=== PATIENT | female | born 1940 | race Caucasian/White ===

== ENCOUNTER 2016-11-17 12:13 | Inpatient (IN) | payer OTHER ==
[~2016-11-17] VITALS: Ht 161.3 cm; Wt 100.4 kg
[~2016-11-17 12:13] MED LIST: ASPIRIN325 MG PO; CALCIUM PO; CARVEDILOL6.25 MG PO; CLOPIDOGREL75 MG PO; COZAAR50 MG PO; ETODOLAC ER400 MG PO; FUROSEMIDE80 MG PO; KLOR-CON 1010 MEQ PO; LIPITOR80 MG PO; METFORMIN HCL1000 MG PO; MULTIVITAMIN1 TAB PO; [UNRECOGNIZED DRUG - OTHER] PO
--- NOTE | 2016-11-17 15:11 | ED CLINICAL REPORT ---
Clinical Report - Physicians/Mid Levels Formerly [facility] [address] [place] [address] 11/17/2016 12:15 Patient: JAYLYN WEBBER Time Seen: 1241; initial patient contact. Arrived- By private vehicle. Historian- patient. HISTORY OF PRESENT ILLNESS Chief Complaint: RECTAL BLEEDING. This started today, has been severe and is still present. It was abrupt in onset and has been constant but is not gone now. The patient has had severe rectal bleeding. (clots with bowel movements. Light headed slightly but not sure if that different from baseline. On clopidogrel and asprin). Similar symptoms previously: Once (about 2 years ago. had a colonoscopy but does not remember the results). Recent medical care: Not recently seen/assessed. REVIEW OF SYSTEMS No skin rash. All systems otherwise negative, except as recorded above. PAST HISTORY See nurses notes. Medications: Calcium & Magnesium Carbonates Oral (Tablet 311-232 mg) 1 tablet, day. Furosemide Oral 120, daily. Clopidogrel Bisulfate Oral 75 mg, daily. Carvedilol 12.5mg bid. Potassium Chloride Oral 10 meq, daily. MetFORMIN HCl Oral 1000mg, 2x a day. Etodolac Oral 400 mg, 2x a day. Losartan Potassium Oral 100 mg, daily. Atorvastatin Calcium Oral 80 mg, at bedtime. ASA Oral 81mg day. Iron Oral 65mg DAY. Allergies: Sulfa Antibiotics. SOCIAL HISTORY Never smoker. No alcohol use or drug use. No recent travel. Is a local resident. ADDITIONAL NOTES The nursing notes have been reviewed. PHYSICAL EXAM Vital Signs: 11/17/2016 12:32 BP: 174/64. HR: 72. RR: 18. O2 saturation: 98%. Temp: 98.1 F. Pain level now: 0/10. Hypertensive. Oxygen saturation normal. Appearance: Alert. Oriented X3. No acute distress. Eyes: Pupils equal, round and reactive to light. Eyes normal inspection. No pale conjunctivae. ENT: Ears normal. Nose normal. Pharynx normal. CVS: Normal heart rate and rhythm. Heart sounds normal. Pulses normal. Respiratory: No respiratory distress. Breath sounds normal. No rales, rhonchi or wheezes. Abdomen: Soft and nontender. Bowel sounds normal. No mass. Rectal: Rectal exam normal and nontender. (grossly positve maroon colored blood on EUSEBIO). Skin: Skin warm and dry. Normal skin color. No rash. Normal skin turgor. Extremities: Extremities exhibit normal ROM. No lower extremity edema. LABS, X-RAYS, AND EKG Laboratory Tests: UA-Culture if indicated: (BRANDEN: 11/17/2016 13:00) ( [facility] 11/17/2016 14:17) Final results Test Result Flag Units (Reference) URINE COLOR YELLOW URINE APPEARANCE CLEAR URINE GLUCOSE NEGATIVE (NEGATIVE) URINE BILIRUBIN 2+ (NEGATIVE) URINE KETONE NEGATIVE (NEGATIVE) URINE SPECIFIC GRAVITY <= 1.005 L (1.010-1.030) URINE PH 6.0 (5.0-8.0) URINE PROTEIN NEGATIVE (NEGATIVE) URINE UROBILINOGEN 0.2 EU/dL (0.2-1.0) URINE NITRITE NEGATIVE (NEGATIVE) URINE BLOOD NEGATIVE (NEGATIVE) URINE LEUK ESTERASE POSITIVE (NEGATIVE) URINE RBC NONE SEEN rbc/hpf (0-1) URINE WBC 5-10 wbc/hpf (0-1) URINE EPITHELIAL CELLS 0-1 EPI/hpf (0-5) URINE BACTERIA MODERATE (2+ TO 3+) (NONE SEEN) URINE COMMENT CULTURE INDICATED URINE CULTURES ARE SET-UP BASED ON THE FOLLOWING CRITERIA:POSITIVE NITRITEPOSITIVE LEUKOCYTE ESTERASEGREATER THAN 10 WHITE BLOOD CELLSMODERATE (2+) OR GREATER BACTERIA CBC w Diff: (BRANDEN: 11/17/2016 13:10) ( [facility] 11/17/2016 13:27) Final results Test Result Flag Units (Reference) WHITE BLOOD COUNT 12.1 H K/uL (4.5-11.5) RED BLOOD COUNT 4.06 M/uL (4.00-5.20) HEMOGLOBIN 11.6 L gm/dL (12.0-16.0) HEMATOCRIT 35.5 L % (36.0-46.0) MEAN CELL VOLUME 88 fL (80-100) MEAN CORPUSCULAR HGB 29 pg (26-34) MEAN CORPUSCULAR HGB CONC 33 g/dL (31-37) RED CELL DISTRIBUTION WIDTH 15.9 H % (11.6-14.8) PLATELET COUNT 273 K/uL (150-400) NEUTROPHIL % 69.3 % (50-75) LYMPH % 20.8 L % (25-40) MONO % 6.9 % (3-14) EOSINOPHIL % 2.6 % (0-4) BASOPHIL % 0.4 % (0-2) PT with INR: (BRANDEN: 11/17/2016 13:10) ( [facility] 11/17/2016 13:40) Final results Test Result Flag Units (Reference) INR 0.9 (0.8-1.2) Low Intensity Therapy: INR 1.5-2.0 PT range 18.5-23.1Mod.Intensity Therapy: INR 2.0-3.0 PT range 23.1-31.5High Intensity Therapy: INR 2.5-3.5 PT range 27.4-35.5High Intensity Therapy 2: INR 3.0-4.0 PT range 31.5-39.3 APTT 29 SECONDS (24-34) CMP: (BRANDEN: 11/17/2016 13:10) ( [facility] 11/17/2016 13:54) Final results Test Result Flag Units (Reference) GLUCOSE 93 mg/dL (70-110) BUN 25 H mg/dL (7-18) CREATININE 1.2 mg/dL (0.6-1.3) Estimated GFR 46.42 mL/min Estimated GFR- 56.27 mL/min Note: Persistent reduction over 3 months in eGFR<60 mL/min/1.73 m2 defines CKD. Patients with eGFR values>=60 mL/min/1.73 m2 may also have CKD if evidence ofpersistent proteinuria. Additional information may be foundat www.kidney.org. SODIUM 141 mmol/L (136-145) POTASSIUM 4.4 mmol/L (3.5-5.1) CHLORIDE 101 mmol/L (98-107) CARBON DIOXIDE 33 H mmol/L (21-32) CALCIUM 9.3 mg/dL (8.5-10.1) TOTAL PROTEIN 7.6 g/dL (6.4-8.2) ALBUMIN 3.3 g/dL (3.3-5.0) BILIRUBIN, TOTAL 0.6 mg/dL (0.0-1.0) ALKALINE PHOSPHATASE 64 U/L (46-116) AST (SGOT) 21 U/L (15-37) ALT (SGPT) 14 U/L (12-78) Type & Screen: (BRANDEN: 11/17/2016 13:10) ( MsgRcvd 11/17/2016 14:18) Final results Test Result Flag Units (Reference) PATIENT BLOOD TYPE O Positive ANTIBODY SCREEN NEGATIVE . PROGRESS AND PROCEDURES Course of Care: patient with bleeding on history and exam. patient without significantly low H/H requiring transfusion. discussed case with hospitalist who will accept patient and surgery has been contacted for upper and lower endoscopy tomorrow. patient agreeable to plan. incidental UTI also found. Abx ordered. discussed case with patient. all questions answered. patient agreeable to the treatment and plan. Critical care performed (30 minutes). Time is exclusive of separately billable procedures. Time includes: direct patient care, patient reassessment, coordination of patient care, review of patient's medical records, medical consultation and documentation of patient care. Consult obtained from surgery. CLINICAL IMPRESSION Major GI bleed (acute). Urinary tract infection. (Electronically signed by Johan Garber Dr. 11/19/2016 18:31)
--- NOTE | 2016-11-17 15:11 | ED NURSING NOTES ---
Clinical Report - Nurses [facility] [address] [place] [address] 11/17/2016 12:15 Patient: JAYLYN WEBBER TRIAGE Triage time 12:32. Acuity: LEVEL 3. Chief Complaint: ABDOMINAL PAIN. Alert. No acute distress. --12:50 Heather Singh R.N. 12:32 11/17/16. BP: 174/64. HR: 72. RR: 18. O2 saturation: 98%. Temp: 98.1 F. Pain level now: 0/10. --12:50 Heather Singh R.N. 12:32 11/17/16. BP: 174/64. HR: 72. RR: 18. O2 saturation: 98%. Temp: 98.1 F. Pain level now: 0/10. --12:51 Heather Singh R.N. Weight: 95.2 kg stated. Height/Length: 62 inches Per Patient. BMI: 38.4. --12:49 Heather Singh R.N. Medications Iron Oral 65mg DAY. --12:35 Heather Singh R.N. ASA Oral 81mg day. --12:35 Heather Singh R.N. Atorvastatin Calcium Oral 80 mg, at bedtime. --12:36 Heather Singh R.N. Losartan Potassium Oral 100 mg, daily. --12:36 Heather Singh R.N. Etodolac Oral 400 mg, 2x a day. --12:37 Heather Singh R.N. MetFORMIN HCl Oral 1000mg, 2x a day. --12:38 Heather Singh R.N. Potassium Chloride Oral 10 meq, daily. --12:39 Heather Singh R.N. Carvedilol 12.5mg bid. --12:40 Heather Singh R.N. Clopidogrel Bisulfate Oral 75 mg, daily. --12:40 Heather Singh R.N. Furosemide Oral 120, daily. --12:41 Heather Singh R.N. Calcium & Magnesium Carbonates Oral (Tablet 311-232 mg) 1 tablet, day. --12:41 Heather Singh R.N. Medication/allergy information source: the patient. --12:50 Heather Singh R.N. Allergies Sulfa Antibiotics. --12:42 Heather Singh R.N. History Arrived by private vehicle. Historian: patient and family. Accompanied by family. Primary physician (luis). This started today. She has had diarrhea. No nausea, vomiting, constipation or abdominal pain. Last oral intake by patient was breakfast. 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 PAST MEDICAL HX: Immunizations: status is unknown. The patient has had a hysterectomy. SOCIAL HX: Smoker- current status unknown. FALL RISK ASSESSMENT: Fall risk assessment completed. No fall risk identified. NUTRITIONAL RISK ASSESSMENT: The nutritional risk assessment revealed no deficiencies. FUNCTIONAL ASSESSMENT: Functional assessment: no impairments noted. LEARNING NEEDS ASSESSMENT: The learning needs assessment revealed no barriers. SKIN INTEGRITY ASSESSMENT: Skin integrity risk assessment completed. No skin integrity risk identified. --12:50 Heather Singh R.N. PROBLEMS: VT. Diabetes Mellitus. 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 Htn. --12:46 Heather Singh R.N. ADDITIONAL SURGERIES: Hysterectomy. Knee Surgery. --12:46 Heather Singh R.N. Interventions ID band on patient. To room. --12:50 Heather Singh R.N. PHYSICAL ASSESSMENT Ambulatory to room. Patient gowned. GENERAL / NEURO / PSYCH: Alert. Oriented X 4. Appears in no acute distress. HEENT: Mucous membranes are pink. RESPIRATORY: Respirations not labored. CVS: Capillary refill less than 2 seconds. GI / : Abdomen nontender. SKIN: Skin is warm and dry. --12:51 Heather Singh R.N. NURSING PROGRESS NOTES Pulse oximeter and NIBP monitor placed on patient; monitor alarms on. Patient gowned. Head of bed elevated. Two patient identifiers checked. Call light placed in reach. Side rails up x 2. Patient placed in chair. Brakes of chair on. Patient ready for evaluation. --12:52 Heather Singh R.N. 13:09 11/17/2016 Site #1 started via IV antecubital space with an 20g angiocath, with aseptic technique and good blood return; one attempt. Blood drawn: rainbow set. Labeled in the presence of the patient and sent to the lab. Saline lock flushed with saline. --13:09 Heather Singh R.N. 13:09 11/17/2016 Started bag #1 1000 mL IV Fluids IV NS (Saline); at 1000 mL/hr over 1 hour(s) via site #1 via IV pump. Allergies verified and confirmed 5 rights. IV patency established. IV site checked: no pain, redness, or swelling. IV flushed thoroughly pre- and post-medication administration. --13:09 Heather Singh R.N. 14:11/17/2016 IV Fluids IV NS Discontinued: bag #1 infused. Total amount infused: 1000 mL. IV patency established. IV site checked: no pain, redness, or swelling. IV flushed thoroughly. --14:10 Fiordaliza Glasgow R.N. 15:37 11/17/16. BP: 133/78 taken while sitting. HR: 65. RR: 16. O2 saturation: 99%. Pain level now: 0/10. 14:16 11/17/16. BP: 150/74. HR: 78. RR: 20. O2 saturation: 100% on room air. 13:16 11/17/16. BP: 145/88. HR: 82. RR: 20. O2 saturation: 100% on room air. 12:32 11/17/16. BP: 174/64. HR: 72. RR: 18. O2 saturation: 98%. Temp: 98.1 F. Pain level now: 0/10. --15:43 Heather Singh R.N. 15:45 11/17/2016 Keflex (Cephalexin) PO 500 mg given. Allergies verified and confirmed 5 rights. --15:45 Fiordaliza Glasgow R.N. 16:00 11/17/16. BP: 139/60 taken while lying. HR: 77. RR: 18. O2 saturation: 99% on room air. 15:59 11/17/16. BP: 123/54 taken on the left arm, while standing. HR: 74. RR: 18. O2 saturation: 99% on room air. 15:37 11/17/16. BP: 133/78 taken while sitting. HR: 65. RR: 16. O2 saturation: 99%. Pain level now: 0/10. --16:01 Heather Singh R.N. DISPOSITION / DISCHARGE 16:05 11/17/16. Admitted to Acute Care (209). Transported via stretcher by Miro. Report was given to a nurse via a phone call. Report included patient's care, treatment, medications, reviewed medication reconcilliation, and condition (including any recent changes or anticipated changes). All questions were answered. Report was acknowledged and care was transferred. (Dex RN). Patient's personal items include: shirt, pants, undergarments, pajamas, socks, shoes and jewelry; items were placed in belongings bag and transported with the patient. Collection of belongings was witnessed by 1 nurse. --16:05 Heather Singh R.N. 16:00 11/17/16. BP: 139/60 taken while lying. HR: 77. RR: 18. O2 saturation: 99% on room air. 15:59 11/17/16. BP: 123/54 taken on the left arm, while standing. HR: 74. RR: 18. O2 saturation: 99% on room air. 15:58 11/17/16. BP: 138/95 taken while sitting. HR: 64. RR: 18. O2 saturation: 98% on room air. 15:37 11/17/16. BP: 133/78 taken while sitting. HR: 65. RR: 16. O2 saturation: 99%. Pain level now: 0/10. 14:16 11/17/16. BP: 150/74. HR: 78. RR: 20. O2 saturation: 100% on room air. 13:16 11/17/16. BP: 145/88. HR: 82. RR: 20. O2 saturation: 100% on room air. 12:32 11/17/16. BP: 174/64. HR: 72. RR: 18. O2 saturation: 98%. Temp: 98.1 F. Pain level now: 0/10. --16:05 Heather Singh R.N. Departure time: 16:12. --16:12 Heather Singh R.N. Locked/Released at 11/17/2016 16:12 by Heather Singh R.N.
--- NOTE | 2016-11-17 15:11 | ED CLINICAL REPORT ---
Clinical Report - Physicians/Mid Levels [facility] [address] [place] [address] 11/17/2016 12:15 Patient: JAYLYN WEBBER Time Seen: 1241; initial patient contact. Arrived- By private vehicle. Historian- patient. HISTORY OF PRESENT ILLNESS Chief Complaint: RECTAL BLEEDING. This started today, has been severe and is still present. It was abrupt in onset and has been constant but is not gone now. The patient has had severe rectal bleeding. (clots with bowel movements. Light headed slightly but not sure if that different from baseline. On clopidogrel and asprin). Similar symptoms previously: Once (about 2 years ago. had a colonoscopy but does not remember the results). Recent medical care: Not recently seen/assessed. REVIEW OF SYSTEMS No skin rash. All systems otherwise negative, except as recorded above. PAST HISTORY See nurses notes. Medications: Calcium & Magnesium Carbonates Oral (Tablet 311-232 mg) 1 tablet, day. Furosemide Oral 120, daily. Clopidogrel Bisulfate Oral 75 mg, daily. Carvedilol 12.5mg bid. Potassium Chloride Oral 10 meq, daily. MetFORMIN HCl Oral 1000mg, 2x a day. Etodolac Oral 400 mg, 2x a day. Losartan Potassium Oral 100 mg, daily. Atorvastatin Calcium Oral 80 mg, at bedtime. ASA Oral 81mg day. Iron Oral 65mg DAY. Allergies: Sulfa Antibiotics. SOCIAL HISTORY Never smoker. No alcohol use or drug use. No recent travel. Is a local resident. ADDITIONAL NOTES The nursing notes have been reviewed. PHYSICAL EXAM Vital Signs: 11/17/2016 12:32 BP: 174/64. HR: 72. RR: 18. O2 saturation: 98%. Temp: 98.1 F. Pain level now: 0/10. Hypertensive. Oxygen saturation normal. Appearance: Alert. Oriented X3. No acute distress. Eyes: Pupils equal, round and reactive to light. Eyes normal inspection. No pale conjunctivae. ENT: Ears normal. Nose normal. Pharynx normal. CVS: Normal heart rate and rhythm. Heart sounds normal. Pulses normal. Respiratory: No respiratory distress. Breath sounds normal. No rales, rhonchi or wheezes. Abdomen: Soft and nontender. Bowel sounds normal. No mass. Rectal: Rectal exam normal and nontender. (grossly positve maroon colored blood on EUSEBIO). Skin: Skin warm and dry. Normal skin color. No rash. Normal skin turgor. Extremities: Extremities exhibit normal ROM. No lower extremity edema. LABS, X-RAYS, AND EKG Laboratory Tests: UA-Culture if indicated: (BRANDEN: 11/17/2016 13:00) ( [facility] 11/17/2016 14:17) Final results Test Result Flag Units (Reference) URINE COLOR YELLOW URINE APPEARANCE CLEAR URINE GLUCOSE NEGATIVE (NEGATIVE) URINE BILIRUBIN 2+ (NEGATIVE) URINE KETONE NEGATIVE (NEGATIVE) URINE SPECIFIC GRAVITY <= 1.005 L (1.010-1.030) URINE PH 6.0 (5.0-8.0) URINE PROTEIN NEGATIVE (NEGATIVE) URINE UROBILINOGEN 0.2 EU/dL (0.2-1.0) URINE NITRITE NEGATIVE (NEGATIVE) URINE BLOOD NEGATIVE (NEGATIVE) URINE LEUK ESTERASE POSITIVE (NEGATIVE) URINE RBC NONE SEEN rbc/hpf (0-1) URINE WBC 5-10 wbc/hpf (0-1) URINE EPITHELIAL CELLS 0-1 EPI/hpf (0-5) URINE BACTERIA MODERATE (2+ TO 3+) (NONE SEEN) URINE COMMENT CULTURE INDICATED URINE CULTURES ARE SET-UP BASED ON THE FOLLOWING CRITERIA:POSITIVE NITRITEPOSITIVE LEUKOCYTE ESTERASEGREATER THAN 10 WHITE BLOOD CELLSMODERATE (2+) OR GREATER BACTERIA CBC w Diff: (BRANDEN: 11/17/2016 13:10) ( [facility] 11/17/2016 13:27) Final results Test Result Flag Units (Reference) WHITE BLOOD COUNT 12.1 H K/uL (4.5-11.5) RED BLOOD COUNT 4.06 M/uL (4.00-5.20) HEMOGLOBIN 11.6 L gm/dL (12.0-16.0) HEMATOCRIT 35.5 L % (36.0-46.0) MEAN CELL VOLUME 88 fL (80-100) MEAN CORPUSCULAR HGB 29 pg (26-34) MEAN CORPUSCULAR HGB CONC 33 g/dL (31-37) RED CELL DISTRIBUTION WIDTH 15.9 H % (11.6-14.8) PLATELET COUNT 273 K/uL (150-400) NEUTROPHIL % 69.3 % (50-75) LYMPH % 20.8 L % (25-40) MONO % 6.9 % (3-14) EOSINOPHIL % 2.6 % (0-4) BASOPHIL % 0.4 % (0-2) PT with INR: (BRANDEN: 11/17/2016 13:10) ( [facility] 11/17/2016 13:40) Final results Test Result Flag Units (Reference) INR 0.9 (0.8-1.2) Low Intensity Therapy: INR 1.5-2.0 PT range 18.5-23.1Mod.Intensity Therapy: INR 2.0-3.0 PT range 23.1-31.5High Intensity Therapy: INR 2.5-3.5 PT range 27.4-35.5High Intensity Therapy 2: INR 3.0-4.0 PT range 31.5-39.3 APTT 29 SECONDS (24-34) CMP: (BRANDEN: 11/17/2016 13:10) ( [facility] 11/17/2016 13:54) Final results Test Result Flag Units (Reference) GLUCOSE 93 mg/dL (70-110) BUN 25 H mg/dL (7-18) CREATININE 1.2 mg/dL (0.6-1.3) Estimated GFR 46.42 mL/min Estimated GFR- 56.27 mL/min Note: Persistent reduction over 3 months in eGFR<60 mL/min/1.73 m2 defines CKD. Patients with eGFR values>=60 mL/min/1.73 m2 may also have CKD if evidence ofpersistent proteinuria. Additional information may be foundat [email or web address].org. SODIUM 141 mmol/L (136-145) POTASSIUM 4.4 mmol/L (3.5-5.1) CHLORIDE 101 mmol/L (98-107) CARBON DIOXIDE 33 H mmol/L (21-32) CALCIUM 9.3 mg/dL (8.5-10.1) TOTAL PROTEIN 7.6 g/dL (6.4-8.2) ALBUMIN 3.3 g/dL (3.3-5.0) BILIRUBIN, TOTAL 0.6 mg/dL (0.0-1.0) ALKALINE PHOSPHATASE 64 U/L (46-116) AST (SGOT) 21 U/L (15-37) ALT (SGPT) 14 U/L (12-78) Type & Screen: (BRANDEN: 11/17/2016 13:10) ( MsgRcvd 11/17/2016 14:18) Final results Test Result Flag Units (Reference) PATIENT BLOOD TYPE O Positive ANTIBODY SCREEN NEGATIVE . PROGRESS AND PROCEDURES Course of Care: patient with bleeding on history and exam. patient without significantly low H/H requiring transfusion. discussed case with hospitalist who will accept patient and surgery has been contacted for upper and lower endoscopy tomorrow. patient agreeable to plan. incidental UTI also found. Abx ordered. discussed case with patient. all questions answered. patient agreeable to the treatment and plan. Critical care performed (30 minutes). Time is exclusive of separately billable procedures. Time includes: direct patient care, patient reassessment, coordination of patient care, review of patient's medical records, medical consultation and documentation of patient care. Consult obtained from surgery. CLINICAL IMPRESSION Major GI bleed (acute). Urinary tract infection. (Electronically signed by Johan Garber Dr. 11/19/2016 18:31)
--- NOTE | 2016-11-17 15:11 | ED ORDER SUMMARY ---
..... Patient: JAYLYN WEBBER OrderSheet [facility]ly [facility] VisitID: [id number] [place] [address] 76y, F Registration Date/Time: 11/17/2016 ORDER SHEET Weight: 95.2 kg (stated) Allergies: Sulfa Antibiotics GENERAL ORDERS: CBC w Diff Urgent (12:41 11/17/2016 Mian Lino) (Ack 12:52 Nishi) (13:10 SRoberts R.N.) CMP Urgent (12:41 11/17/2016 Mian Lino) (Ack 12:52 Nishi) (13:10 SRoberts R.N.) PT with INR Urgent (12:11/17/2016 Mian Lino) (Ack 12:52 Nishi) (13:10 SRoberts R.N.) PTT Urgent (12:11/17/2016 Mian Lino) (Ack 12:52 Nishi) (13:10 SRoberts R.N.) UA-Culture if indicated Urgent (12:41 11/17/2016 Mian Lino) (Ack 12:52 Nishi) (13:10 SRoberts R.N.) Type & Screen Urgent (12:41 11/17/2016 Mian Lino) (Ack 12:52 Nishi) (13:10 SRoberts R.N.) Pulse oximeter (12:41 11/17/2016 Mian Lino) (Ack 12:52 Nishi) (12:52 SRoberts R.N.) Consult - Surgery (15:02 11/17/2016 Mian Lino) (Ack 15:05 Nishi) (16:03 SRoberts R.N.) Vitals (15:13 11/17/2016 Mian Lino) (Cancelled: Duplicate Order15:37 Mian Lino) Vitals - Orthostatic (15:38 11/17/2016 Mian Lino) (15:47 SRoberts R.N.) MEDICATION ORDERS: Keflex PO 500 mg (NOW) (15:38 11/17/2016 Mian Lino) (Ack 15:41 MWinterer R.N.) (15:45 MWintersalo R.N.) IV FLUIDS: IV NS : initial bolus 1000 mL (1000 mL/hr), then none - for X1 (NOW) (12:41 11/17/2016 Mian Lino) (13:09 [facility] ORDER SHEET NOTES: [Electronically signed by Heather Singh R.N. (16:12 11/17/2016)] [Electronically signed by Johan Garber Dr. (18:31 11/19/2016)] [Electronically locked/signed by Heather Singh R.N. (16:12 11/17/2016)]
--- NOTE | 2016-11-17 15:11 | ED ORDER SUMMARY ---
..... Patient: JAYLYN WEBBER OrderSheet [facility] VisitID: [id number] [place] [address] 76y, F Registration Date/Time: 11/17/2016 ORDER SHEET Weight: 95.2 kg (stated) Allergies: Sulfa Antibiotics GENERAL ORDERS: CBC w Diff Urgent (12:41 11/17/2016 Mian Lino) (Ack 12:52 Nishi) (13:10 SRoberts R.N.) CMP Urgent (12:41 11/17/2016 Mian Lino) (Ack 12:52 Nishi) (13:10 SRoberts R.N.) PT with INR Urgent (12:11/17/2016 Mian Lino) (Ack 12:52 Nishi) (13:10 SRoberts R.N.) PTT Urgent (12:11/17/2016 Mian Lino) (Ack 12:52 Nishi) (13:10 SRoberts R.N.) UA-Culture if indicated Urgent (12:41 11/17/2016 Mian Lino) (Ack 12:52 Nishi) (13:10 SRoberts R.N.) Type & Screen Urgent (12:41 11/17/2016 Mian Lino) (Ack 12:52 Nishi) (13:10 SRoberts R.N.) Pulse oximeter (12:41 11/17/2016 Mian Lino) (Ack 12:52 Nishi) (12:52 SRoberts R.N.) Consult - Surgery (15:02 11/17/2016 Mian Lino) (Ack 15:05 Nishi) (16:03 SRoberts R.N.) Vitals (15:13 11/17/2016 Mian Lino) (Cancelled: Duplicate Order15:37 Mian Lino) Vitals - Orthostatic (15:38 11/17/2016 Mian Lino) (15:47 SRoberts R.N.) MEDICATION ORDERS: Keflex PO 500 mg (NOW) (15:38 11/17/2016 Mian Lino) (Ack 15:41 MWinterer R.N.) (15:45 MWintersalo R.N.) IV FLUIDS: IV NS : initial bolus 1000 mL (1000 mL/hr), then none - for X1 (NOW) (12:41 11/17/2016 Mian Lino) (13:09 [facility] ORDER SHEET NOTES: [Electronically signed by Heather Singh R.N. (16:12 11/17/2016)] [Electronically signed by Johan Garber Dr. (18:31 11/19/2016)] [Electronically locked/signed by Heather Singh R.N. (16:12 11/17/2016)]
--- NOTE | 2016-11-17 15:11 | ED NURSING NOTES ---
Clinical Report - Nurses [facility] [address] [place] [address] 11/17/2016 12:15 Patient: JAYLYN WEBBER TRIAGE Triage time 12:32. Acuity: LEVEL 3. Chief Complaint: ABDOMINAL PAIN. Alert. No acute distress. --12:50 Heather Singh R.N. 12:32 11/17/16. BP: 174/64. HR: 72. RR: 18. O2 saturation: 98%. Temp: 98.1 F. Pain level now: 0/10. --12:50 Heather Singh R.N. 12:32 11/17/16. BP: 174/64. HR: 72. RR: 18. O2 saturation: 98%. Temp: 98.1 F. Pain level now: 0/10. --12:51 Heather Singh R.N. Weight: 95.2 kg stated. Height/Length: 62 inches Per Patient. BMI: 38.4. --12:49 Heather Singh R.N. Medications Iron Oral 65mg DAY. --12:35 Heather Singh R.N. ASA Oral 81mg day. --12:35 Heather Singh R.N. Atorvastatin Calcium Oral 80 mg, at bedtime. --12:36 Heather Singh R.N. Losartan Potassium Oral 100 mg, daily. --12:36 Heather Singh R.N. Etodolac Oral 400 mg, 2x a day. --12:37 Heather Singh R.N. MetFORMIN HCl Oral 1000mg, 2x a day. --12:38 Heather Singh R.N. Potassium Chloride Oral 10 meq, daily. --12:39 Heather Singh R.N. Carvedilol 12.5mg bid. --12:40 Heather Singh R.N. Clopidogrel Bisulfate Oral 75 mg, daily. --12:40 Heather Singh R.N. Furosemide Oral 120, daily. --12:41 Heather Singh R.N. Calcium & Magnesium Carbonates Oral (Tablet 311-232 mg) 1 tablet, day. --12:41 Heather Singh R.N. Medication/allergy information source: the patient. --12:50 Heather Singh R.N. Allergies Sulfa Antibiotics. --12:42 Heather Signh R.N. History Arrived by private vehicle. Historian: patient and family. Accompanied by family. Primary physician (luis). This started today. She has had diarrhea. No nausea, vomiting, constipation or abdominal pain. Last oral intake by patient was breakfast. Treatment FRIT BURNER: None. PAST MEDICAL HX: Immunizations: status is unknown. The patient has had a hysterectomy. SOCIAL HX: Smoker- current status unknown. FALL RISK ASSESSMENT: Fall risk assessment completed. No fall risk identified. NUTRITIONAL RISK ASSESSMENT: The nutritional risk assessment revealed no deficiencies. FUNCTIONAL ASSESSMENT: Functional assessment: no impairments noted. LEARNING NEEDS ASSESSMENT: The learning needs assessment revealed no barriers. SKIN INTEGRITY ASSESSMENT: Skin integrity risk assessment completed. No skin integrity risk identified. --12:50 Heather Singh R.N. PROBLEMS: MD. Diabetes Mellitus. 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 Htn. --12:46 Heather Singh R.N. ADDITIONAL SURGERIES: Hysterectomy. Knee Surgery. --12:46 Heather Singh R.N. Interventions ID band on patient. To room. --12:50 Heather Singh R.N. PHYSICAL ASSESSMENT Ambulatory to room. Patient gowned. GENERAL / NEURO / PSYCH: Alert. Oriented X 4. Appears in no acute distress. HEENT: Mucous membranes are pink. RESPIRATORY: Respirations not labored. CVS: Capillary refill less than 2 seconds. GI / : Abdomen nontender. SKIN: Skin is warm and dry. --12:51 Heather Singh R.N. NURSING PROGRESS NOTES Pulse oximeter and NIBP monitor placed on patient; monitor alarms on. Patient gowned. Head of bed elevated. Two patient identifiers checked. Call light placed in reach. Side rails up x 2. Patient placed in chair. Brakes of chair on. Patient ready for evaluation. --12:52 Heather Singh R.N. 13:09 11/17/2016 Site #1 started via IV antecubital space with an 20g angiocath, with aseptic technique and good blood return; one attempt. Blood drawn: rainbow set. Labeled in the presence of the patient and sent to the lab. Saline lock flushed with saline. --13:09 Heather Singh R.N. 13:09 11/17/2016 Started bag #1 1000 mL IV Fluids IV NS (Saline); at 1000 mL/hr over 1 hour(s) via site #1 via IV pump. Allergies verified and confirmed 5 rights. IV patency established. IV site checked: no pain, redness, or swelling. IV flushed thoroughly pre- and post-medication administration. --13:09 Heather Singh R.N. 14:11/17/2016 IV Fluids IV NS Discontinued: bag #1 infused. Total amount infused: 1000 mL. IV patency established. IV site checked: no pain, redness, or swelling. IV flushed thoroughly. --14:10 Fiordaliza Glasgow R.N. 15:37 11/17/16. BP: 133/78 taken while sitting. HR: 65. RR: 16. O2 saturation: 99%. Pain level now: 0/10. 14:16 11/17/16. BP: 150/74. HR: 78. RR: 20. O2 saturation: 100% on room air. 13:16 11/17/16. BP: 145/88. HR: 82. RR: 20. O2 saturation: 100% on room air. 12:32 11/17/16. BP: 174/64. HR: 72. RR: 18. O2 saturation: 98%. Temp: 98.1 F. Pain level now: 0/10. --15:43 Heather Singh R.N. 15:45 11/17/2016 Keflex (Cephalexin) PO 500 mg given. Allergies verified and confirmed 5 rights. --15:45 Fiordaliza Glasgow R.N. 16:00 11/17/16. BP: 139/60 taken while lying. HR: 77. RR: 18. O2 saturation: 99% on room air. 15:59 11/17/16. BP: 123/54 taken on the left arm, while standing. HR: 74. RR: 18. O2 saturation: 99% on room air. 15:37 11/17/16. BP: 133/78 taken while sitting. HR: 65. RR: 16. O2 saturation: 99%. Pain level now: 0/10. --16:01 Heather Singh R.N. DISPOSITION / DISCHARGE 16:05 11/17/16. Admitted to Acute Care (209). Transported via stretcher by [employer]. Report was given to a nurse via a phone call. Report included patient's care, treatment, medications, reviewed medication reconcilliation, and condition (including any recent changes or anticipated changes). All questions were answered. Report was acknowledged and care was transferred. (Dex RN). Patient's personal items include: shirt, pants, undergarments, pajamas, socks, shoes and jewelry; items were placed in belongings bag and transported with the patient. Collection of belongings was witnessed by 1 nurse. --16:05 Heather Singh R.N. 16:00 11/17/16. BP: 139/60 taken while lying. HR: 77. RR: 18. O2 saturation: 99% on room air. 15:59 11/17/16. BP: 123/54 taken on the left arm, while standing. HR: 74. RR: 18. O2 saturation: 99% on room air. 15:58 11/17/16. BP: 138/95 taken while sitting. HR: 64. RR: 18. O2 saturation: 98% on room air. 15:37 11/17/16. BP: 133/78 taken while sitting. HR: 65. RR: 16. O2 saturation: 99%. Pain level now: 0/10. 14:16 11/17/16. BP: 150/74. HR: 78. RR: 20. O2 saturation: 100% on room air. 13:16 11/17/16. BP: 145/88. HR: 82. RR: 20. O2 saturation: 100% on room air. 12:32 11/17/16. BP: 174/64. HR: 72. RR: 18. O2 saturation: 98%. Temp: 98.1 F. Pain level now: 0/10. --16:05 Heather Singh R.N. Departure time: 16:12. --16:12 Heather Singh R.N. Locked/Released at 11/17/2016 16:12 by Heather Singh R.N.
[2016-11-17 16:29] VITALS: BP 144/65
[2016-11-17 18:19] VITALS: BP 145/58
--- NOTE | 2016-11-17 18:23 | History & Physical Report ---
History Chief Complaint Rectal bleed History of Present Illness This is a 76-year-old white female who developed rectal bleed this morning that was a fresh red blood with clots moderate amount makes. Small amount of stool. Since then patient had 4 more times rectal bleeding. No abdominal pain no nausea or vomiting no fever or chills patient had a similar episode last year. Patient History 1. Diabetes 2. Asthma 3. Hypertension 4. CAD (coronary artery disease) 5. Heart block 6. Anemia 7. Artificial cardiac pacemaker 8. S/P COLONOSCOPY 9. H/O: hysterectomy Social History The patient is a , has 2 kids, lives alone. Smoking: None, alcohol: None, illicit drugs: None. Family History MOTHER, , Age 89; Cause: due to natural causes. Stroke FATHER, , Age 49; Cause: FH: diabetic complications. FH: diabetes mellitus BROTHER, ; Cause: Myocardial infarction. FH: myocardial infarction BROTHER, ; Cause: CVA (cerebral infarction). Cancer (other) Stroke SISTER, ; Cause: Myocardial infarction. FH: myocardial infarction SISTER Medications and Allergies Medications Current Medications Sig/Josiane Start time Last Medication Dose Route Stop Time Status Admin Levofloxacin/Dextrose 100 ML DAILY 11/18 0900 UNV IV Losartan Potassium 100 MG DAILY 11/18 0900 UNV PO Potassium Chloride 10 MEQ DAILY 11/18 0900 UNV PO Pantoprazole Sodium 40 MG DAILY@0600 11/18 0600 UNV IV Insulin Human Lispro See Dose ACHS 11/17 2100 UNi Insts (1) SC Atorvastatin Calcium 80 MG QPM 11/17 1800 UNV PO Carvedilol 12.5 MG BIDWC 11/17 1800 UNV PO Dextrose/Sodium 1,000 ML ASDIRECTED 11/17 1730 UNV Chloride IV Ondansetron HCl 4 MG Q6H PRN 11/17 1730 UNV IV Dose Instructions: (1)Insulin Human Lispro: MEDIUM DOSE SLIDING SCALE Home medications: Carvedilol 12.5 mg twice a day, Lipitor 80 mg daily, potassium chloride 10 mEq daily, losartan 100 mg daily, Lasix 20 mg daily, metformin thousand milligram twice a day. Allergies Coded Allergies: Codeine (Mild, Nausea 11/17/16) NSAIDs (10/26/14) Naproxen (10/26/14) Sulfa Drugs (10/26/14) Reconcile Medications Scheduled Medications Aspirin (Aspirin 325 MG) 325 MG TAB 163 MG PO DAILY (Reported) Atorvastatin Calcium (Lipitor 80 MG) 80 MG TAB 80 MG PO DAILY (Reported) Calcium Carbonate-Vitamin D W/ (Calcium 600 + Minerals) TAB 1 TAB PO DAILY ( Reported) Carvedilol (Carvedilol 6.25 MG) 6.25 MG TAB 6.25 MG PO BIDWC (Reported) Clopidogrel Bisulfate (Clopidogrel 75 MG) 75 MG TAB 75 MG PO DAILY (Reported) Etodolac (Etodolac ER) 400 MG TAB 1 TAB PO BID (Reported) Furosemide (Furosemide 80 MG) 80 MG TAB 80 MG PO DAILY (Reported) Losartan Potassium (Cozaar 50 MG) 50 MG TAB 50 MG PO DAILY (Reported) Metformin Hydrochloride (Metformin HCl 1000 MG) 1,000 MG TAB 1,000 MG PO DAILY (Reported) Multiple Vitamin (Multivitamin) 1 TAB TAB 1 TAB PO DAILY (Reported) Potassium Chloride (Klor-Con 10 Meq Tablet) 10 MEQ TAB 10 MEQ PO DAILY ( Reported) Review of Systems Other Patient has been gaining weight recently, complains of blurred vision no difficulty with hearing, no runny nose congestion sore throat or cough, no chest pain nor dyspnea or palpitations, no dysuria or frequency or incontinence, no arthralgia or myalgia, complains of headaches and dizziness also numbness in the left arm which is chronic no localized weakness no syncope. Physical Exam Vital Signs / I&Os Vital Signs Date Time Temp Pulse Resp B/P Pulse O2 O2 Flow FiO2 Ox Delivery Rate 11/17 1629 98.1 63 16 144/65 95 Room Air 0.0 General Appearance Alert, Oriented X3, No acute distress HEENT Normal exam Lungs Clear to auscultation Neck Supple, No JVD, No thyromegaly, 2+ carotid pulse wo bruit Cardiovascular Regular rate and rhythm, Normal S1 and S2, No murmurs, gallops, rubs Abdomen Normal bowel sounds, Soft, No tenderness Extremities No cyanosis, No edema, Normal pulses Skin No Rashes, No Significant Lesions Neurological Normal speech, Reflexes 2+ and equal, Cranial nerves intact, Strength 5/5 x4 ext's Psych/Mental Status Mental status normal LAB Results Laboratory Tests 11/17 11/17 1310 1300 Chemistry Plasma Sodium (136 - 145 mmol/L) 141 Plasma Potassium (3.5 - 5.1 mmol/L) 4.4 Plasma Chloride (98 - 107 mmol/L) 101 CO2 (Enzymatic) (21 - 32 mmol/L) 33 BUN (7 - 18 mg/dL) 25 Creatinine (0.6 - 1.3 mg/dL) 1.2 Est GFR ( Amer) (mL/min) 56.27 Est GFR (Non-Af Amer) (mL/min) 46.42 Glucose (70 - 110 mg/dL) 93 Plasma Calcium (8.5 - 10.1 mg/dL) 9.3 Total Bilirubin (0.0 - 1.0 mg/dL) 0.6 AST (15 - 37 U/L) 21 ALT (12 - 78 U/L) 14 Alkaline Phosphatase (46 - 116 U/L) 64 Total Protein (6.4 - 8.2 g/dL) 7.6 Albumin (3.3 - 5.0 g/dL) 3.3 Coagulation INR (0.8 - 1.2) 0.9 APTT (24 - 34 SECONDS) 29 Hematology WBC (4.5 - 11.5 K/uL) 12.1 RBC (4.00 - 5.20 M/uL) 4.06 Hgb (12.0 - 16.0 gm/dL) 11.6 Hct (36.0 - 46.0 %) 35.5 MCV (80 - 100 fL) 88 MCH (26 - 34 pg) 29 RDW (11.6 - 14.8 %) 15.9 Neut % (Auto) (50 - 75 %) 69.3 Lymph % (Auto) (25 - 40 %) 20.8 [place] % (Auto) (3 - 14 %) 6.9 Eos % (Auto) (0 - 4 %) 2.6 Baso % (Auto) (0 - 2 %) 0.4 Plt Count, EDTA (150 - 400 K/uL) 273 PUBS MCHC (31 - 37 g/dL) 33 Urines Urine Color YELLOW Urine Appearance CLEAR Urine pH (5.0 - 8.0) 6.0 Ur Specific [place] (1.010 - 1.030) <= 1.005 Urine Protein (NEGATIVE) NEGATIVE Urine Ketones (NEGATIVE) NEGATIVE Urine Blood (NEGATIVE) NEGATIVE Urine Nitrite (NEGATIVE) NEGATIVE Urine Bilirubin (NEGATIVE) 2+ Urine Urobilinogen (0.2 - 1.0 EU/dL) 0.2 Ur Leukocyte Esterase (NEGATIVE) POSITIVE Urine RBC (0 - 1 rbc/hpf) NONE SEEN Urine WBC (0 - 1 wbc/hpf) 5-10 Ur Epithelial Cells (0 - 5 EPI/hpf) 0-1 Urine Bacteria (NONE SEEN) MODERATE (2+ TO 3+) Urine Glucose (NEGATIVE) NEGATIVE Urine Comment CULTURE INDICATED Microbiology Date/Time Procedure - Status Source Growth 11/17 1300 Urine Culture - RECD URINE CC Assessment and Plan Problem List 1. Lower GI bleed Status Resolved Plan Patient will be nothing by mouth, IV hydration and IV Protonix and surgical consult is already obtained through the ER was monitored and hemoglobin and hematocrit 2. Diabetes Status Chronic Plan We will monitor the blood sugar patient will be on sliding scale insulin will hold metformin since patient is nothing by mouth 3. Hypertension Status Chronic Plan Since blood pressure is high I will continue blood pressure medications except Lasix will be monitored blood pressure and might have to stop blood pressure medication if blood pressure drops too low 4. CAD (coronary artery disease) Plan Stable 5. UTI (urinary tract infection) Plan I will start Levaquin for this problem
--- NOTE | 2016-11-17 18:26 | Progress Note ---
Subjective General ADVANCED CARE PLAN History of Present Illness This is a 76-year-old white female who developed rectal bleed this morning that was a fresh red blood with clots moderate amount makes. Small amount of stool. Since then patient had 4 more times rectal bleeding. No abdominal pain no nausea or vomiting no fever or chills patient had a similar episode last year. A discussion was undertaken with the patient regarding previous advance care arrangements/decisions. The following advanced directives were noted by the patient and discussed with me at the time of admission. ADVANCED DIRECTIVES: 1. Living well: Yes 2. POLST: No 3. CODE STATUS: Full no code 4. Durable [employer] Human [employer] Specialist Health care: Yes 5. Donor card: No The patient has expressed interest in not pursuing any form of resuscitation at this time. She has opted not to pursue intubation/mechanical ventilation, CPR, electrical cardioversion, or life-sustaining efforts involving drugs at the time of cardiopulmonary arrest. The patient's wishes were documented in the chart and orders regarding the patient's wishes entered into the [employer] system. The "Advance Care Plan Document" was not distributed to patient to discuss with her family. Less than 30 minutes was spent in performing the above tasks and documentation of the patient's advanced care plan.
[2016-11-17 22:31] VITALS: BP 118/55
[2016-11-18] VITALS (12 sets, daily range): BP systolic 98–154; BP diastolic 42–65
[2016-11-18] MEDS ORDERED: IRON325 MG PO (03:02)
--- NOTE | 2016-11-18 06:55 | Consultation Report ---
History Chief Complaint Bright red blood per rectum History of Present Illness This 76-year-old female admitted to [facility] with history of bright red blood per rectum. Patient states that she awoke at 4:30 AM on the day of admission went to the bathroom and passed into amount of blood and clots in the toilet bowl. This persisted throughout the day. She came to emergency room and noted to have a hematocrit pre-hydration of 35. Patient was admitted and persisted in having further episode of bright red blood per rectum until this morning. No recent chest pain or shortness of breath. No lightheaded or dizziness. Patient denies any abdominal pain. Denies any hematemesis. No prior history of peptic ulcer disease. She was admitted for similar complaints in 2014 and underwent colonoscopy by myself, and was noted to have extensive descending and sigmoid diverticulosis. Patient History 1. Hematochezia 2. ASCVD (arteriosclerotic cardiovascular disease) 3. Diabetes 4. Hypertension 5. GI bleed 6. Asthma 7. CAD (coronary artery disease) 8. Heart block 9. Anemia 10. Artificial cardiac pacemaker Social History . 2 daughters alive and well. Patient is not smoking. Patient underwent alcohol. Patient is not use retrograde drugs. 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 PAST MEDICAL/SURGICAL HISTORY: Primary care provider is Dr. Moncada Diabetes mellitus Hypertension Coronary artery disease. Heart block. Status post pacemaker placement. Status post colonoscopy 2015 diverticulosis. Status post hysterectomy. Ovaries in place. Status post right knee arthroscopy, treated by infection. Right knee replacement. FAMILY HISTORY: Mother at age 89 natural causes. Following age 49 diabetic complications and IN. 5 brothers and 4 , one from a CVA, one from an IN, one from a suicide, one from lung cancer. 2 sisters, one IN Family History MOTHER, , Age 89; Cause: due to natural causes. Stroke FATHER, , Age 49; Cause: FH: diabetic complications. FH: diabetes mellitus BROTHER, ; Cause: Myocardial infarction. FH: myocardial infarction BROTHER, ; Cause: CVA (cerebral infarction). Cancer (other) Stroke SISTER, ; Cause: Myocardial infarction. FH: myocardial infarction SISTER Medications and Allergies Medications Home medications include insulin sliding scale. Carvedilol 12.5 mg twice a day. Lipitor 80 mg daily Potassium replacement 10 mEq daily Lorstatin 100 mg daily. Lasix 20 mg daily Metformin 1000 mg twice a day. ENTODOLAC 400 mg twice a day. Current Medications Sig/Josiane Start time Last Medication Dose Route Stop Time Status Admin Losartan Potassium 100 MG DAILY 11/18 899 AC PO Potassium Chloride 10 MEQ DAILY 11/18 0900 AC PO Pantoprazole Sodium 40 MG DAILY@0600 11/18 0600 AC 11/18 IV 0537 Insulin Human Lispro See Dose ACHS 11/17 2100 AC Insts (1) SC Carvedilol 12.5 MG BIDWC 11/18 1999 AC 11/17 PO 1906 Levofloxacin/Dextrose 150 ML Q48H 11/18 1999 AC 11/17 IV 2000 Atorvastatin Calcium 80 MG QPM 11/17 1900 AC 11/17 PO 1905 Dextrose/Sodium 1,000 ML ASDIRECTED 11/17 1730 AC 11/18 Chloride IV 0357 Ondansetron HCl 4 MG Q6H PRN 11/17 1730 AC IV Dose Instructions: (1)Insulin Human Lispro: MEDIUM DOSE SLIDING SCALE Allergies Coded Allergies: Codeine (Mild, Nausea 11/17/16) NSAIDs (10/26/14) Naproxen (10/26/14) Sulfa Drugs (10/26/14) Reconcile Medications Scheduled Medications Aspirin (Aspirin 325 MG) 325 MG TAB 163 MG PO DAILY (Reported) Atorvastatin Calcium (Lipitor 80 MG) 80 MG TAB 80 MG PO DAILY (Reported) Calcium Carbonate-Vitamin D W/ (Calcium 600 + Minerals) TAB 1 TAB PO DAILY ( Reported) Carvedilol (Carvedilol 6.25 MG) 6.25 MG TAB 6.25 MG PO BIDWC (Reported) Clopidogrel Bisulfate (Clopidogrel 75 MG) 75 MG TAB 75 MG PO DAILY (Reported) Etodolac (Etodolac ER) 400 MG TAB 1 TAB PO BID (Reported) Ferrous Sulfate (Iron) 325 MG TAB 65 MG PO DAILY anemia (Reported) Furosemide (Furosemide 80 MG) 80 MG TAB 80 MG PO DAILY (Reported) Losartan Potassium (Cozaar 50 MG) 50 MG TAB 50 MG PO DAILY (Reported) Metformin Hydrochloride (Metformin HCl 1000 MG) 1,000 MG TAB 1,000 MG PO DAILY (Reported) Multiple Vitamin (Multivitamin) 1 TAB TAB 1 TAB PO DAILY (Reported) Potassium Chloride (Klor-Con 10 Meq Tablet) 10 MEQ TAB 10 MEQ PO DAILY ( Reported) Review of Systems Other G3, T2, AB 1. Menarche age 10. Her first full-term cartilage 19. Last Mr. Jennifer 29. Many years she had a Pap smear in it has been many years since she had a mammogram. Decreased hearing, increased weight gain, occasional blurred vision, chronic numbness, left arm. No history of hepatitis, jaundice, rheumatic fever, heart murmurs, requiring antibiotics, bleeding tendencies, or blood transfusions that she is aware of. Remaining 12 point review of systems negative Physical Exam Vital Signs / I&Os Vital Signs Date Time Temp Pulse Resp B/P Pulse O2 O2 Flow FiO2 Ox Delivery Rate 11/18 0239 Room Air 11/18 0216 98.4 77 16 110/59 97 Room Air 11/17 2231 97.9 72 15 118/55 96 Room Air 11/17 1906 70 11/17 1819 98.8 66 16 145/58 93 Room Air 11/17 1630 Room Air 11/17 1629 98.1 63 16 144/65 95 Room Air 0.0 I&O 11/17 0800 11/17 1600 11/18 0000 Intake Total 367 Output Total 250 Balance 117 General Appearance Alert, Oriented X3, Cooperative, No acute distress HEENT Atraumatic, PERRLA, EOMI, Moist mucous membranes, wearing glasses Lungs Clear to auscultation Neck Supple, No JVD, No masses, No thyromegaly, No lymphadenopathy, 2+ carotid pulse wo bruit Cardiovascular Regular rate and rhythm Abdomen Normal bowel sounds, Soft, No tenderness, No guarding, No rebound, No masses, No hepatosplenomegaly, obese Extremities No cyanosis, No clubbing, No edema Skin warm and dry Neurological No lateralizing signs Psych/Mental Status Mental status normal LAB Results Postoperative hydration, hematocrit 27.3. Laboratory Tests 11/17 11/17 11/18 1300 1310 0545 Chemistry Plasma Sodium (136 - 145 mmol/L) 141 144 Plasma Potassium (3.5 - 5.1 mmol/L) 4.4 4.5 Plasma Chloride (98 - 107 mmol/L) 101 107 CO2 (Enzymatic) (21 - 32 mmol/L) 33 32 BUN (7 - 18 mg/dL) 25 18 Creatinine (0.6 - 1.3 mg/dL) 1.2 1.0 Est GFR ( Amer) (mL/min) 56.27 >60 Est GFR (Non-Af Amer) (mL/min) 46.42 57.29 Glucose (70 - 110 mg/dL) 93 153 Plasma Calcium (8.5 - 10.1 mg/dL) 9.3 8.2 Total Bilirubin (0.0 - 1.0 mg/dL) 0.6 AST (15 - 37 U/L) 21 ALT (12 - 78 U/L) 14 Alkaline Phosphatase (46 - 116 U/L) 64 Total Protein (6.4 - 8.2 g/dL) 7.6 Albumin (3.3 - 5.0 g/dL) 3.3 Coagulation INR (0.8 - 1.2) 0.9 APTT (24 - 34 SECONDS) 29 Hematology WBC (4.5 - 11.5 K/uL) 12.1 7.7 RBC (4.00 - 5.20 M/uL) 4.06 3.10 Hgb (12.0 - 16.0 gm/dL) 11.6 8.9 Hct (36.0 - 46.0 %) 35.5 27.3 MCV (80 - 100 fL) 88 88 MCH (26 - 34 pg) 29 29 RDW (11.6 - 14.8 %) 15.9 16.1 Neut % (Auto) (50 - 75 %) 69.3 61.3 Lymph % (Auto) (25 - 40 %) 20.8 26.8 [place] % (Auto) (3 - 14 %) 6.9 7.1 Eos % (Auto) (0 - 4 %) 2.6 4.5 Baso % (Auto) (0 - 2 %) 0.4 0.3 Plt Count, EDTA (150 - 400 K/uL) 273 214 PUBS MCHC (31 - 37 g/dL) 33 33 Urines Urine Color YELLOW Urine Appearance CLEAR Urine pH (5.0 - 8.0) 6.0 Ur Specific [place] (1.010 - 1.030) <= 1.005 Urine Protein (NEGATIVE) NEGATIVE Urine Ketones (NEGATIVE) NEGATIVE Urine Blood (NEGATIVE) NEGATIVE Urine Nitrite (NEGATIVE) NEGATIVE Urine Bilirubin (NEGATIVE) 2+ Urine Urobilinogen (0.2 - 1.0 EU/dL) 0.2 Ur Leukocyte Esterase (NEGATIVE) POSITIVE Urine RBC (0 - 1 rbc/hpf) NONE SEEN Urine WBC (0 - 1 wbc/hpf) 5-10 Ur Epithelial Cells (0 - 5 EPI/hpf) 0-1 Urine Bacteria (NONE SEEN) MODERATE (2+ TO 3+) Urine Glucose (NEGATIVE) NEGATIVE Urine Comment CULTURE INDICATED Microbiology Date/Time Procedure - Status Source Growth 11/17 1300 Urine Culture - RECD URINE CC Assessment and Plan Problem List 1. Diabetes Status Chronic Plan diabetes under control. Followed by hospitalist. 2. ASCVD (arteriosclerotic cardiovascular disease) Status Chronic Plan Arteriosclerotic heart disease, stable. Followed by hospitalist 3. GI bleed Plan GI bleed. Most likely exacerbation of diverticulosis. Unfortunately patient did not undergo a prep for colonoscopy therefore this will be delayed an extra day. I discussed performing a procedure with the patient. Risks and benefits understood. Patient understands and agrees to proceed. We will schedule her for colonoscopy appropriately. We discussed the possibility of performing upper GI endoscopy on the patient. Risk and benefits understood. Patient understands and agrees to proceed. We will schedule her for that today.. 4. CAD (coronary artery disease) Plan Coronary artery disease, stable. Followed by hospitalist. 5. Heart block Plan Heart block, paced., Followed by hospitalist
--- NOTE | 2016-11-18 12:51 | Operative Report ---
Operative Report Date of Surgery: 11/18/16 Preoperate Diagnosis: GI bleed Postoperative Diagnosis: mild duodenitis and mild antritis Surgeon: Marcial Dey MD [employer]anging Crewmember Surgeon: none Procedure Performed: Upper GI endoscopy with biopsies Anesthesia: Total intravenous anesthesia Indications: 76-year-old female admitted with bright red blood per rectum. Post-hydration, hematocrit 27 from 37. Last colonoscopy 2014 when she was noted to have extensive sigmoid diverticulosis. FINDINGS: Normal-appearing duodenum. No evidence of old blood and fresh blood. The duodenal bulb had mild inflammatory changes. The antrum had the appearance of shallow aphthous appearing ulcers. No evidence of old blood and fresh blood in the gastric lumen. The EG junction and esophagus appeared grossly normal Surgical Technique: Patient brought to the operating room placed in the left lateral decubitus position. Patient was administered total intravenous anesthesia.. Once anesthesia had taken affect, the posterior pharynx was sprayed using Cetacaine spray. An Olympus fiberoptic video upper GI endoscope was passed in to the patient's posterior pharynx. The esophagus intubated under direct visualization. The scope passed easily down the esophagus through the EG junction . The scope passed easily through the EG junction into the gastric lumen and eventually into the second third portion of duodenum. On withdrawing the scope, the afore mentioned findings were noted. Multiple random biopsy obtained of the duodenal bulb mucosa. The scope was withdrawn into the gastric lumen. Multiple random biopsies were obtained of the antrum. At this point, the patient desaturated and the scope was completely withdrawn . After bagging the patient, her oxygenation picked up to 99%. And she remained stable Patient was transferred to the recovery room in stable condition. There were no intraoperative or anesthetic complications.
[2016-11-19 03:37] VITALS: BP 134/66
--- NOTE | 2016-11-19 07:27 | Progress Note ---
Subjective General Feeling ok. Pt had brief sharp pain in RLQ yesterday after EGD. Tolerated bowel prep for colonoscopy today. No N,V. No further hematochezia. Constitutional Denies: Fever, Chills, Sweats, Weakness, Malaise. Eyes Denies: Pain, Vision Change, Conjunctival Inflammation, Eyelid Inflammation, Redness. ENT Denies: Ear Pain, Ear Discharge, Nose Pain, Nasal Discharge, Nasal Congestion, Mouth Pain, Mouth Swelling, Throat Pain, Throat Swelling. Respiratory Denies: Cough, Dry, SOB w/exertion, Wheezing, Hemoptysis, Pleuritic Pain, Sputum. Cardiovascular Denies: Chest Pain, Palpitations, Orthopnea, PND, Edema, Light-headedness. Gastrointestinal Abdominal Pain, Diarrhea, Other (RLQ pain persists today). Denies: Nausea, Vomiting, Constipation, Melena, Hematochezia. Genitourinary Denies: Dysuria, Frequency, Incontinence, Hematuria, Retention. Musculoskeletal Back Pain. Skin Denies: Rash, Lesions, Jaundice, Bruising. Neurological Denies: Weakness, Numbness, Incoordination, Change in speech, Confusion, Seizures. Physical Exam Vital Signs / I&Os Vital Signs Date Time Temp Pulse Resp B/P Pulse O2 O2 Flow FiO2 Ox Delivery Rate 11/19 0337 97.9 71 16 134/66 95 Room Air 07/03 2328 116/49 07/03 2239 98.8 59 16 98/42 96 Room Air 07/03 2045 Room Air 07/03 1816 98.2 73 16 142/55 94 Room Air 07/03 1714 76 07/03 1640 Room Air 07/03 1530 98.4 69 20 153/65 96 Room Air 07/03 1500 98.4 71 20 146/56 92 Room Air 07/03 1430 98.4 72 20 143/55 95 Room Air 07/03 1415 97.5 72 20 142/55 95 Room Air 07/03 1400 97.9 73 20 130/55 100 Room Air 0.0 07/03 1345 97.9 73 20 122/61 100 Room Air 0.0 07/03 1329 97.9 74 24 123/53 100 Room Air 0.0 07/03 1314 98.1 79 24 122/49 100 Nasal 3.0 Cannula 07/03 1305 77 18 143/56 100 Nasal 3.0 Cannula 07/03 1300 76 20 143/56 100 Nasal 3.0 Cannula 07/ 1255 76 24 142/59 100 Nasal 3.0 Cannula / 1250 97.3 75 13 131/54 100 Nasal 3.0 Cannula / 1247 97.3 75 21 131/54 100 Nasal 3.0 Cannula 07/03 0830 67 07/03 0719 67 18 154/62 98 I&O 11/18 0800 11/18 1600 11/19 0000 Intake Total 899 1380 500 Output Total 1000 800 Balance -101 1380 -300 General Appearance Alert, Oriented X3, Cooperative, No acute distress HEENT Normal exam, Moist mucous membranes Lungs Clear to auscultation Neck Supple, No JVD Cardiovascular Regular rate and rhythm, No murmurs, gallops, rubs, split S1 Abdomen Soft, No tenderness, No guarding, No rebound Extremities Normal exam, Normal pulses, Strength = upper ext's, Strength = lower ext's Skin No Rashes, No Significant Lesions Neurological Strength 5/5 x4 ext's, No lateralizing signs Psych/Mental Status Mental status normal, Mood normal LAB Results Laboratory Tests 11/18 1600 Chemistry Hemoglobin A1c % (4.5 - 6.2 %) 7.1 Hematology Hct (36.0 - 46.0 %) 28.7 Assessment and Plan Problem List 1. GI bleed Plan Minimal findings on EGD. Colonoscopy today. D/C after procedure per Dr. Dey. 2. Anemia Plan Stabilized 3. Diabetes Status Chronic Plan Controlled with Lantus + sliding scale. 4. Aortic stenosis Status Chronic Plan s/p TAVR 5. Hypertension Status Chronic Plan Fair control 6. ASCVD (arteriosclerotic cardiovascular disease) Status Chronic Plan Asymptomatic 7. UTI (urinary tract infection) Plan Tx'd
[2016-11-19 07:35] VITALS: BP 148/62
[2016-11-19] MEDS ORDERED: LANTUS SOL100 UNITS/ SC (07:36)
--- NOTE | 2016-11-19 07:37 | Provider's Discharge Care Plan ---
Problem, Goal, Plan Problem List 1. GI bleed
--- NOTE | 2016-11-19 07:37 | Provider's Discharge Care Plan ---
Problem, Goal, Plan Problem List 1. GI bleed
[2016-11-19 10:26] VITALS: BP 135/53
--- NOTE | 2016-11-19 13:10 | Operative Report ---
Operative Report Date of Surgery: 11/19/16 Preoperate Diagnosis: bright red blood per rectum. History of diverticulosis Postoperative Diagnosis: extensive sigmoid diverticulosis Surgeon: Marcial Dey MD Corporate Relations Director Surgeon: none Procedure Performed: Limited colonoscopy Anesthesia: Total intravenous anesthesia Indications: 76-year-old female history of bright red blood per rectum. Colonoscopy 2015 or similar complaints was noted to have extensive sigmoid diverticulosis . The patient readmitted with similar symptoms. FINDINGS: Extensive sigmoid diverticulosis, possible clot in several diverticuli , but no evidence of old blood and fresh blood in the lumen of the colon. Unable to advance scope secondary to extensive diverticuli Surgical Technique: Patient was brought to the operating room. Patient was placed in the left lateral decubitus position. Patient was administered TIVA by anesthesia. Once anesthesia had taken effect digital rectal examination was performed. No masses or stenosis was appreciated. This was then followed by the passage of a fiberoptic video flexible Olympus colonoscope. The scope was then passed with considerable difficulty to the junction of the sigmoid and descending colon. Rather than risk injury, i.e. perforation. The exam was terminated. The aforementioned findings were noted. No evidence of old blood or fresh blood in the lumen of the colon The scope was then retroflexed and a good view of the rectal wall obtained. The scope was then completely withdrawn. Patient tolerated procedure well. Patient was transferred to the recovery room in stable condition. There were no intraoperative or anesthetic complications.
[2016-11-19 13:33] VITALS: BP 152/50
[2016-11-19 13:45] VITALS: BP 147/54
[2016-11-19 14:00] VITALS: BP 152/50
--- NOTE | 2016-11-19 18:32 | ED MED RECONCILIATION SUMMARY ---
Patient: JAYLYN WEBBER Medication Reconciliation Report [facility] VisitID: [id number] [address] [place] [address] 76y, F Registration Date/Time: 11/17/2016 Weight: 95.2 kg Height/Length: 62 in. BMI: 38.4 ALLERGIES: Sulfa Antibiotics The patient's Home Medications are listed below: THE FOLLOWING MEDICATIONS NEED TO BE RECONCILED: ASA Oral 81mg day Atorvastatin Calcium Oral 80 mg, at bedtime Calcium & Magnesium Carbonates Oral (311-232 mg) 1 tablet, day Carvedilol 12.5mg bid Clopidogrel Bisulfate Oral 75 mg, daily Etodolac Oral 400 mg, 2x a day Furosemide Oral 120, daily Iron Oral 65mg DAY Losartan Potassium Oral 100 mg, daily MetFORMIN HCl Oral 1000mg, 2x a day Potassium Chloride Oral 10 meq, daily The source(s) of the original Home Medication information: patient The following Medications were given to the patient in the Emergency Department: IV NS IV Fluids bolus 0, then 1000 mL/hr, administered: 11/17/2016 1:09:00 PM Keflex [PO] PO 500 mg, administered: 11/17/2016 3:45:00 PM The following Medications were prescribed to the patient: None.
--- NOTE | 2016-11-19 18:32 | ED MED RECONCILIATION SUMMARY ---
Patient: JAYLYN WEBBER Medication Reconciliation Report [facility] VisitID: [id number] [address] [place] [address] 76y, F Registration Date/Time: 11/17/2016 Weight: 95.2 kg Height/Length: 62 in. BMI: 38.4 ALLERGIES: Sulfa Antibiotics The patient's Home Medications are listed below: THE FOLLOWING MEDICATIONS NEED TO BE RECONCILED: ASA Oral 81mg day Atorvastatin Calcium Oral 80 mg, at bedtime Calcium & Magnesium Carbonates Oral (311-232 mg) 1 tablet, day Carvedilol 12.5mg bid Clopidogrel Bisulfate Oral 75 mg, daily Etodolac Oral 400 mg, 2x a day Furosemide Oral 120, daily Iron Oral 65mg DAY Losartan Potassium Oral 100 mg, daily MetFORMIN HCl Oral 1000mg, 2x a day Potassium Chloride Oral 10 meq, daily The source(s) of the original Home Medication information: patient The following Medications were given to the patient in the Emergency Department: IV NS IV Fluids bolus 0, then 1000 mL/hr, administered: 11/17/2016 1:09:00 PM Keflex [PO] PO 500 mg, administered: 11/17/2016 3:45:00 PM The following Medications were prescribed to the patient: None.
--- NOTE | 2016-11-19 18:32 | ED DISCHARGE INSTRUCTIONS ---
Patient: JAYLYN WEBBER General Instructions [facility] VisitID: [id number] [address] [place] [address] 76y, F Registration Date/Time: 11/17/2016 Major GI bleed (acute). Urinary tract infection. (Electronically signed by Johan Garber Dr. 11/19/2016 18:31)
--- NOTE | 2016-11-19 18:32 | ED DISCHARGE INSTRUCTIONS ---
Patient: JAYLYN WEBBER General Instructions [facility] VisitID: [id number] [address] [place] [address] 76y, F Registration Date/Time: 11/17/2016 Major GI bleed (acute). Urinary tract infection. (Electronically signed by Johan Garber Dr. 11/19/2016 18:31)
--- NOTE | 2016-11-19 18:32 | ED MAR SUMMARY ---
..... Medication Administration Record [facility] [address] [place] [address] Patient: JAYLYN WEBBER Visit ID: [id number] 76y, F Weight: 95.2 kg Height/Length: 62 in BMI: 38.4 ALLERGIES: Sulfa Antibiotics Start 13:09 11/17/2016 Heather Singh R.N., Stop 14:10 11/17/2016 Fiordaliza Glasgow R.N. Medication Administered: IV NS (SALINE), Dose: IV Fluids over 1 hour(s), Rate: 1000 mL/hr, Dispensed: 1000 mL bag, Site: #1 . Medication Ordered: IV NS : initial bolus 1000 mL (1000 mL/hr), then none - for X1 (NOW). Given 15:45 11/17/2016 Fiordaliza Glasgow R.N. Medication Administered: KEFLEX [PO] (CEPHALEXIN), Dose: 500 mg PO. Medication Ordered: Keflex PO 500 mg (NOW).
--- NOTE | 2016-11-19 18:32 | ED MAR SUMMARY ---
..... Medication Administration Record [facility] [address] [place] [address] Patient: JAYLYN WEBBER Visit ID: [id number] 76y, F Weight: 95.2 kg Height/Length: 62 in BMI: 38.4 ALLERGIES: Sulfa Antibiotics Start 13:09 11/17/2016 Heather Singh R.N., Stop 14:10 11/17/2016 Fiordaliza Glasgow R.N. Medication Administered: IV NS (SALINE), Dose: IV Fluids over 1 hour(s), Rate: 1000 mL/hr, Dispensed: 1000 mL bag, Site: #1 . Medication Ordered: IV NS : initial bolus 1000 mL (1000 mL/hr), then none - for X1 (NOW). Given 15:45 11/17/2016 Fiordaliza Glasgow R.N. Medication Administered: KEFLEX [PO] (CEPHALEXIN), Dose: 500 mg PO. Medication Ordered: Keflex PO 500 mg (NOW).
--- NOTE | 2016-11-20 08:00 | Discharge Summary ---
Discharge Summary Report Admit Date 11/17/16 Discharge Date 11/19/16 Admission Diagnosis GI BLEED. DIVERTICULOSIS. GASTRITIS Discharge Diagnosis DIVERTICULOSIS. LOWER GI BLEED Brief History PT ADMITTED FOR BRB/RECTUM Hospital Course STABILIZED. EGD AND COLONOSCOPY PERFORMED. DID NOT REQUIRE TRANSFUSION General Appearance Alert, Oriented X3, Cooperative, No acute distress HEENT Atraumatic, PERRLA, EOMI, Mucous membran moist/pink Lungs Clear to auscultation, Normal air movement Breasts Symmetric Cardiovascular Regular Rate, Normal S2, No murmurs, SPLIT S1 Abdomen Normal bowel sounds, Soft, No tenderness, No masses, OBESE Skin No Rashes, No Significant Lesions Neurological Normal speech, Strength at 5/5 X4 ext, Normal tone, Cranial nerves 3-12 NL Psych/Mental Status Mental status NL, Mood NL Discharge Instructions/Meds REGULAR DM DIET. HIGH FIBER F/U AT CLINIC NEXT WEEK
== END 2016-11-19 14:15 | disposition home or self-care (01) | DRG 378 ==
LOC: ED SRH 12:13 → TRANS SRH 15:31 → ACUTE2 SRH 16:10
PROVIDERS: Specialist; ADMIT Student in an Organized Health Care Education/Training Program
PROC: 0DB78ZX Excision of Stomach, Pylorus, Via Natural or Artificial Opening Endoscopic, Diagnostic (ICD-10-PCS; 2016-11-18)
PROC: 0DJD8ZZ Inspection of Lower Intestinal Tract, Via Natural or Artificial Opening Endoscopic (ICD-10-PCS; principal; 2016-11-19 10:00)
DX: K57.31 Diverticulosis of large intestine without perforation or abscess with bleeding (principal); D64.9 Anemia, unspecified; N39.0 Urinary tract infection, site not specified; K29.60 Other gastritis without bleeding; K29.80 Duodenitis without bleeding; I10 Essential (primary) hypertension; E11.9 Type 2 diabetes mellitus without complications; I35.0 Nonrheumatic aortic (valve) stenosis; J45.909 Unspecified asthma, uncomplicated; I25.10 Atherosclerotic heart disease of native coronary artery without angina pectoris; Z79.4 Long term (current) use of insulin; Z95.0 Presence of cardiac pacemaker
CPT/HCPCS: 50004; 60001; 82943; 83526; 85241; 90001; 90004; 90025; 90047; 90074; 90098; 90100; 90148; 90155; 90469; 91004; 91286; 91544; 94001; 94060; 95059; 95070